=== PATIENT | male | born 1995 | race Hispanic/Latino ===

== ENCOUNTER 2019-03-25 21:32 | Emergency (ER) | payer SELFPAY ==
[~2019-03-25] VITALS: Ht 165.1 cm; Wt 81.0 kg
[2019-03-25 22:08] VITALS: BP 145/95
== END 2019-03-25 22:08 | DRG 923 ==
LOC: ED 21:32
DX: Z04.1 Encounter for examination and observation following transport accident (principal); F10.129 Alcohol abuse with intoxication, unspecified; G89.29 Other chronic pain; M25.571 Pain in right ankle and joints of right foot